=== PATIENT | female | born 1985 | race Caucasian/White ===

== ENCOUNTER 2018-03-15 20:41 | Emergency (ER) | END 2018-03-15 22:31 | disposition home or self-care (01) ==

== ENCOUNTER 2019-04-01 19:26 | Emergency (ER) | payer MEDICAID ==
[~2019-04-01] VITALS: Ht 165.1 cm; Wt 92.4 kg
[~2019-04-01 19:26] MED LIST: BISM-34 PO; IBUP-1542 PO; ONDA4TAB14 PO
[2019-04-01 19:55] VITALS: BP 124/75; PULSE 73; RESP 18; Ht 165.1 cm; Wt 92.4 kg
[2019-04-01] MEDS ORDERED: BEN25 PO (22:02)
[2019-04-01] MEDS ORDERED: HC30CR25 TOP (22:02)
[2019-04-01] MEDS ORDERED: IBUP-1542 PO (22:03)
--- NOTE | 2019-04-01 22:08 | ERD ---
ER Documentation Chief Complaint Chief Complaint possible insect bite to right forearm, c/o redness/swelling HPI 33-year-old female with no reported past medical history presents with complaint of insect bite to right forearm. States she is driving and was stung by a large Bee. Has area of erythema, itchiness to dorsum of right forearm. She otherwise denies respiratory symptoms such as shortness of breath, dyspnea, fevers, swelling of the lip or tongue, affected extremity numbness or weakness or any other concerning symptoms. ROS All systems reviewed and are negative except as per history of present illness. Medications Home Meds Active Scripts Ibuprofen* (Motrin*) 600 Mg Tab, 600 MG PO Q6, #30 TAB Prov:DYLAN DEE PA-C 04/01/19 Hydrocortisone* Topical (Hydrocortisone* Topical) 2.5%-28.3 Gm Cream..g., 1 APPLIC TOP BID for insect bite for 7 Days, #1 TUB Prov:DYLAN DEE PA-C 04/01/19 Diphenhydramine Hcl* (Benadryl*) 25 Mg Cap, 25 MG PO Q6, #20 CAP Prov:DYLAN DEE PA-C 04/01/19 Bismuth Subsalicylate* (Bismuth Subsalicylate*) 262 Mg/15 Ml Oral.susp, 15 ML PO Q6 PRN for DIARRHEA, #1 BOTTLE Prov:WINSTON HARDWICK PA-C 03/15/18 Ibuprofen* (Motrin*) 600 Mg Tab, 600 MG PO Q6, #30 TAB Prov:WINSTON HARDWICK PA-C 03/15/18 Ondansetron (Ondansetron Odt) 4 Mg Tab.rapdis, 4 MG PO Q6H PRN for NAUSEA AND/OR VOMITING, #10 TAB Prov:WINSTON HARDWICK PA-C 03/15/18 Allergies Allergies: Coded Allergies: No Known Drug Allergies (Verified Allergy, Unknown, 03/15/18) PMhx/Soc Medical and Surgical Hx: pt denies Medical Hx, pt denies Surgical Hx Hx Alcohol Use: No Hx Substance Use: No Hx Tobacco Use: No Smoking Status: Never smoker FmHx Family History: No diabetes, No coronary disease, No other Physical Exam Vitals Vital Signs Date Temp Pulse Resp B/P (MAP) Pulse Ox O2 O2 Flow FiO2 Time Delivery Rate 04/01/19 98.2 73 18 124/75 100 19:55 (91) Physical Exam I have reviewed the triage vital signs. Const: Well nourished, well developed, appears stated age Eyes: PERRL, no conjunctival injection HENT: NCAT, Neck supple without meningismus CV: RRR, Warm, well-perfused extremities RESP: CTAB, Unlabored respiratory effort GI: soft, non-tender, non-distended, no masses MSK: No gross deformities appreciated Skin: Warm, dry. Right forearm on dorsum with area of erythema, warmth, tender to touch, moving all fingers, SI LT throughout right upper extremity Neuro: grossly non focal Psych: Appropriate mood and affect. Procedures/MDM 33-year-old female presents with status post insect bite. I have low suspicion for any acute process warranting further emergent care or work-up. Patient without symptoms of serious allergic reaction. Likely to improve with symptomatic care. Will discharge with Benadryl as well as hydrocortisone cream to apply to the area. Strict return precautions explained in detail the patient. DISPOSITION PLAN: We discussed follow up with the patient's primary care doctor within 24 to 48 hours. Patient counseled regarding my diagnostic impression and care plan. Prior to discharge all questions answered. Pt agrees with treatment plan and understands strict return precautions. Precautionary instructions provided including instructions to return to the ER if not improving or for any worsening or changing symptoms or concerns. Disclaimer: Inadvertent spelling and grammatical errors are likely due to EHR/dictation software use and do not reflect on the overall quality of patient care. Also, please note that the electronic time recorded on this note does not necessarily reflect the actual time of the patient encounter. Departure Diagnosis: Primary Impression: Insect bite Condition: Stable Patient Instructions: Insect Bites and Stings Referrals: COMMUNITY CLINICS YOU HAVE RECEIVED A MEDICAL SCREENING EXAM AND THE RESULTS INDICATE THAT YOU DO NOT HAVE A CONDITION THAT REQUIRES URGENT TREATMENT IN THE EMERGENCY DEPARTMENT. FURTHER EVALUATION AND TREATMENT OF YOUR CONDITION CAN WAIT UNTIL YOU ARE SEEN IN YOUR DOCTORS OFFICE WITHIN THE NEXT 1-2 DAYS. IT IS YOUR RESPONSIBILITY TO MAKE AN APPOINTMENT FOR FOLOW-UP CARE. IF YOU HAVE A PRIMARY DOCTOR --you should call your primary doctor and schedule an appointment IF YOU DO NOT HAVE A PRIMARY DOCTOR YOU CAN CALL OUR PHYSICIAN REFERRAL HOTLINE AT IF YOU CAN NOT AFFORD TO SEE A PHYSICIAN YOU CAN CHOSE FROM THE FOLLOWING [facility]ATR[facility] HOSP[facility] CLINICS [facility] [address] [facility] [phone] [address] [facility]. [facility] [address] [facility]. [facility] [address] [facility]. [facility] [address] [facility] [facility] [address] Additional Instructions: Call your primary care doctor TOMORROW for an appointment during the next 2-3 days.See the doctor sooner or return here if your condition worsens before your appointment time. DYLAN DEE PA-C Apr 01, 2019 22:08
== END 2019-04-01 22:13 | disposition home or self-care (01) ==
LOC: FTE 19:26
DX: S50.861A Insect bite (nonvenomous) of right forearm, initial encounter (principal); W57.XXXA Bitten or stung by nonvenomous insect and other nonvenomous arthropods, initial encounter; Y92.9 Unspecified place or not applicable
CPT/HCPCS: 99283

== ENCOUNTER 2019-08-28 08:49 | Emergency (ER) | payer SELFPAY ==
[~2019-08-28] VITALS: Ht 152.4 cm; Wt 91.6 kg
[~2019-08-28 08:49] MED LIST changes: +AMOX1TAB9 PO; +BEN25 PO; +HC30CR25 TOP
[2019-08-28 08:55] VITALS: BP 156/76; PULSE 129; RESP 22; Ht 152.4 cm; Wt 91.6 kg
== END 2019-08-28 09:19 | disposition home or self-care (01) ==
LOC: E/R 08:49
DX: J02.9 Acute pharyngitis, unspecified (principal); J06.9 Acute upper respiratory infection, unspecified
CPT/HCPCS: 99283